=== PATIENT | male | born 1965 | race African-American/Black ===

== ENCOUNTER 2019-11-30 01:04 | Emergency (ER) | payer BC, OTHER ==
[~2019-11-30] VITALS: Ht 200.7 cm; Wt 113.4 kg
[2019-11-30 01:09] VITALS: BP 186/114
[2019-11-30] MEDS ORDERED: ZESTRIL10 MG PO (01:19)
[2019-11-30] MEDS ORDERED: LIPITOR 20 MG T20 M1 PO (01:20)
[2019-11-30 01:49] LABS: ABSOLUTE NEUTROPHILS 5.9 thou/uL (1.4-8.2); BASOPHILS 0.6 % (0.0-2.0); EOSINOPHILS 1.2 % (0.0-3.0); HEMATOCRIT 36.5 % (42.0-52.0); HEMOGLOBIN 12.5 gm/dL (14.0-18.0); LYMPHOCYTES 22.3 % (24.0-44.0); MCH 33.7 pg (26.0-34.0); MCHC 34.2 g/dL (28.0-37.0); MCV 98.5 fL (80.0-100.0); PLATELET COUNT 212 thou/uL (150-400); POLYS 67.9 % (36.0-66.0); RBC 3.71 mil/uL (4.50-6.00); RDW 14.2 % (10.5-14.5); WBC 8.7 thou/uL (4.0-11.0)
[2019-11-30 02:04] LABS: ALBUMIN 3.4 g/dL (3.4-5.0); ANION GAP 11 mmol/L (7-16); BUN 12 mg/dL (7-18); CALCIUM 8.5 mg/dL (8.5-10.1); CHLORIDE 98 mmol/L (98-107); CO2 23 mmol/L (21-32); CREATININE 0.9 mg/dL (0.7-1.3); GLUCOSE 92 mg/dL (74-106); POTASSIUM 4.4 mmol/L (3.5-5.1); SGOT 48 U/L (15-37); SGPT 24 U/L (30-65); SODIUM 132 mmol/L (136-145); TOTAL BILIRUBIN 0.7 mg/dL (<0.1-1.0); TOTAL PROTEIN 7.3 g/dL (6.4-8.2); TROPONIN-I <0.06 ng/mL (<0.06)
--- NOTE | 2019-11-30 08:04 | EKG ---
[facility] [place] [address] ELECTROCARDIOGRAM REPORT Name: CATIE LÓPEZ Room #: DEP [facility]#: [id number] Admission: 11/30/19 Attend Phys: Discharge: 11/30/19 Date of : 67 Report #: [id number] THIS REPORT FOR: cc: Alexander Padilla James A. DO Lundgren, Craig H. MD [facility] THIS REPORT FOR: //name// [facility] ED Test Date: 2019-11-30 Test Time: 01:31:12 Pat Name: CATIE LÓPEZ Department: Room: Gender: [employer] Associate: [place] [id number] : 1965 Requested By: Nestor Muhammad Order Number: [id number] MD: Abdiel Vazquez Measurements Intervals [place] Rate: 67 P: 65 NH: 250 QRS: -18 QRSD: 98 T: -62 QT: 439 QTc: 464 Interpretive Statements Sinus rhythm Prolonged NH interval Borderline left axis deviation Nonspecific T abnormalities, diffuse leads No previous ECG available for comparison Electronically Signed On 11-30-2019 8:02:27 CDT by Abdiel Vazquez [email or web address] <ELECTRONICALLY SIGNED> By: Abdiel Vazquez MD, [facility] 11/30/19 0802 [id number] Abdiel Vazquez MD, [facility] /EPI
== END 2019-11-30 02:09 | disposition left against medical advice (07) ==
LOC: ER 01:04
PROVIDERS: Emergency Medicine
DX: R05 Cough (principal); Z20.828 Contact with and (suspected) exposure to other viral communicable diseases; I10 Essential (primary) hypertension; J44.9 Chronic obstructive pulmonary disease, unspecified